=== PATIENT | female | born 1960 ===

== ENCOUNTER → 2017-12-12 | Outpatient (CLI) | payer OTHER ==
[~2017-12-12] MED LIST: RABE20TA5 PO; SIMV10TA2 PO
[2017-12-12 10:35] LABS: BASO % 0.3 %; BASO ABS # 0.02 K/uL (0-0.2); EOS % 2.2 %; EOS ABS # 0.14 K/uL (0-0.5); HEMOGLOBIN 14.2 g/dL (12.0-16.0); LYMPH % 28.9 %; MEAN CELL VOLUME 90.3 fL (80-100); MEAN CORPUSCULAR HEMOGLOBIN 30.5 pg (25-34); MEAN CORPUSCULAR HGB CONC 33.8 g/dl (32-36); MEAN PLATELET VOLUME 9.5 fL (7.4-10.4); MONO % 6.1 %; MONO ABS # 0.38 K/uL (0.11-0.59); NEUT % 62.5 %; NEUT ABS # 3.89 K/uL (1.4-6.5); PLATELET COUNT 225 K/uL (130-400); RED CELL DISTRIBUTION WIDTH SD 42.5 fL (36.4-46.3); WHITE BLOOD COUNT 6.23 K/uL (4.8-10.8)
== END | disposition home or self-care (01) ==
LOC: C.LAB1850 09:31
PROVIDERS: ATTEND Family Medicine
DX: Z76.89 Persons encountering health services in other specified circumstances (principal)